=== PATIENT | female | born 1995 | race Hispanic/Latino ===

== ENCOUNTER 2018-10-26 00:25 | Emergency (ER) | payer OTHER ==
[2018-10-26] MEDS ORDERED: Ketorolac Tromethamine 60 MG/2 ML VIAL ONE (01:10)
--- NOTE | 2018-10-26 07:54 | RAD ---
RIGHT FOOT 3 VIEWS: DATE: 10/26/2018. COMPARISON: None. HISTORY: Pain, trauma, bruising, injury. FINDINGS: No displaced fracture or dislocation. No radiopaque foreign body or subcutaneous gas. IMPRESSION: No acute findings. POS: [facility]
== END 2018-10-26 01:15 | disposition home or self-care (01) ==
LOC: NAV ERS 00:25
DX: S90.31XA Contusion of right foot, initial encounter (principal); F41.9 Anxiety disorder, unspecified; Z79.899 Other long term (current) drug therapy; W22.03XA Walked into furniture, initial encounter
CPT/HCPCS: 96372; J1885